=== PATIENT | male | born 1985 | race Caucasian/White ===

== ENCOUNTER 2017-03-04 12:50 | Emergency (ER) | payer OTHER ==
[~2017-03-04] VITALS: Ht 175.3 cm; Wt 93.2 kg
[2017-03-04 12:58] VITALS: TEMP 36.7; Ht 175.3 cm; Wt 93.2 kg
--- NOTE | 2017-03-04 13:41 | EMERGENCY ROOM VISIT NOTE ---
History First contact with patient: 13:30 Chief Complaint: BITE Stated Complaint: DOG BITE History of Present Illness The patient is a 31 year old male who presents to the Emergency Room with complaints of dog bite. The patient states that he was trying to break up his 2 dogs from fighting. He states that he sustained bites to the right hand and forearm. The patient rates his discomfort a 7/10. He has full range of motion. He states that he was seen at [facility] and sent to the emergency department for further evaluation. The patient's tetanus shot is up-to-date. The dog's vaccinations are up-to-date. He denies any other injury. Review of Systems A 10 system review of systems was completed with positives and pertinent negatives listed in the HPI. Past Medical/Surgical History Patient denies Social History Smoking Status: Never Smoker Housing Status: lives with family Current/Historical Medications Scheduled Amoxicillin & Pot Clavulanate (Augmentin 875-125 mg), 1 TAB PO BID Physical Exam Vital Signs Date Time Temp Pulse Resp B/P (MAP) Pulse Ox O2 Delivery O2 Flow Rate FiO2 03/04/17 15:41 86 17 134/78 97 03/04/17 12:58 36.7 90 18 121/78 96 Room Air Physical Exam VITALS: Vitals are noted on the nurse's note and reviewed by myself. Vital signs stable. GENERAL: This is a 31-year-old male, in no acute distress, nondiaphoretic, well- developed well-nourished. SKIN: There are multiple fairly superficial punctures and abrasion to the dorsal aspect of the right hand and the dorsal aspect of the right forearm. There are 2 larger lacerations/puncture these total approximately 3 cm in length to the volar aspect of the right forearm. The edges gape slightly. There is no active bleeding. HEAD: Normocephalic atraumatic. EARS: The external ears are normal in appearance. EYES: Pupils equal round and reactive to light and accommodation. Conjunctivae without injection, sclerae without icterus. Extraocular movements intact. NOSE: Patent, turbinates without inflammation or discharge. MOUTH: Mucous membranes moist. Tongue does not deviate. NECK: Supple without nuchal rigidity. HEART: Regular rate and rhythm without murmurs gallops or rubs. LUNGS: Clear to auscultation bilaterally without wheezes, rales or rhonchi. No retractions or accessory muscle use. MUSCULOSKELETAL: Abrasions and puncture/laceration as above. Full range of motion without joint tenderness in all extremities. There is tenderness to palpation the area of laceration and abrasion. Normal gait. Strength 5/5 throughout. NEURO: Patient was alert and oriented to person place and time. Normal sensation to light and sharp touch. No focal neurological deficits. Medical Decision & Procedures ER Provider Diagnostic Interpretation: RIGHT HAND 3 VIEWS, RIGHT FOREARM 2 VIEWS HISTORY: dog bite to hand Right COMPARISON: None. FINDINGS: There is no fracture or dislocation. Soft tissue laceration within the distal forearm. No radiopaque foreign bodies. Old, healed fifth metacarpal fracture. IMPRESSION: No fracture or dislocation within the right hand or right forearm. Soft tissue laceration within the distal forearm. RIGHT HAND 3 VIEWS, RIGHT FOREARM 2 VIEWS HISTORY: dog bite to hand Right COMPARISON: None. FINDINGS: There is no fracture or dislocation. Soft tissue laceration within the distal forearm. No radiopaque foreign bodies. Old, healed fifth metacarpal fracture. IMPRESSION: No fracture or dislocation within the right hand or right forearm. Soft tissue laceration within the distal forearm. Medications Administered Medications (Trade) Dose Ordered Sig/Nicolle Route Start Time Stop Time Status Last Admin Dose Admin Amoxicillin/ Clavulanate Potassium (Augmentin Tab) 875 mg ONE ONCE PO 03/04/17 13:45 03/04/17 13:46 DC 03/04/17 13:59 875 MG Ibuprofen (Motrin Tab) 600 mg NOW STAT PO 03/04/17 14:35 03/04/17 14:36 DC 03/04/17 15:12 600 MG Procedure Multiple lacerations to the volar aspect of the right forearm were repaired. A total of 6 cm of laceration were repaired. Using sterile technique the wound was cleaned with Betadine. The area was sterilely draped. 6 ml of 1% buffered lidocaine was used to anesthetize the skin. Once the patient was numb, the wounds were copiously irrigated under pressure with sterile saline using the [employer] irrigation system. The wound was explored and there were no deep structures such as tendons, bone, or ligaments present. The laceration was repaired using a total of 7 simple interrupted 4-0 nylon sutures with the wound edges being loosely approximated. The patient tolerated the procedure well. The bleeding stopped. The area was cleaned with sterile saline and dressed with bacitracin ointment and bandage. Medical Decision The differential diagnosis includes foreign body, laceration, abrasion, fracture , among others Medication Reconcilliation Current Medication List: was personally reviewed by me Blood Pressure Screening Patient's blood pressure: Normal blood pressure Blood pressure disposition: Did not require urgent referral Impression Primary Impression: Dog bite Departure Information Dispostion Home / Self-Care Condition GOOD Prescriptions Amoxicillin & Pot Clavulanate (Augmentin 875-125 mg) 1 Tab Tab 1 TAB PO BID, #14 TAB Prov: Therese Contreras PA-C 03/04/17 Patient Instructions ED Bite Dog, My [facility] Additional Instructions Augmentin every 12 hours for 7 days to help prevent infection Motrin 600 mg every 6-8 hours or moderate pain Keep wound clean and dry. Do not allow any crusting or dried blood to accumulate on sutures. If this occurs, use a 1:1 solution of hydrogen peroxide/ water on a Q-tip to clean the wound. Use an antibiotic ointment for 3-4 days, then let wound dry. Suture removal in 7-10 days. Return sooner for any signs of infection (increasing redness, swelling, drainage). Ice and elevate for swelling and pain. Keep covered when in sun until sutures removed then SPF 50 or higher for one year. Vitamin E oil if desired two weeks after suture removal for reduction of scar.
[2017-03-04] MEDS ORDERED: XYLOCAINE 1%/SOD BICARB 20 ML VIAL INFIL ONE (13:45)
[2017-03-04] MEDS ORDERED: AMOXICILLIN/CLAVULANATE TAB 875 MG TAB PO ONE (13:45)
--- NOTE | 2017-03-04 14:10 | DIAGNOSTIC IMAGING REPORT ---
RIGHT HAND 3 VIEWS, RIGHT FOREARM 2 VIEWS HISTORY: dog bite to hand Right COMPARISON: None. FINDINGS: There is no fracture or dislocation. Soft tissue laceration within the distal forearm. No radiopaque foreign bodies. Old, healed fifth metacarpal fracture. IMPRESSION: No fracture or dislocation within the right hand or right forearm. Soft tissue laceration within the distal forearm. Electronically signed by: Ganga Wen M.D. 03/04/2017 2:08 PM Dictated Date/Time: 03/04/2017 2:05 PM
[2017-03-04] MEDS ORDERED: IBUPROFEN 600 MG TAB PO STA (14:35)
[2017-03-04] MEDS ORDERED: AMOX875T PO (14:38)
[2017-03-04 15:41] VITALS: BP 134/78; PULSE 86; O2SAT 97
== END 2017-03-04 15:43 | disposition home or self-care (01) ==
LOC: C.EDB 12:52 → C.EDD 15:43
DX: S61.451A Open bite of right hand, initial encounter (principal); S51.851A Open bite of right forearm, initial encounter; W54.0XXA Bitten by dog, initial encounter